=== PATIENT | female | born 1975 | race Two or more races ===

== ENCOUNTER 2022-11-26 23:01 | Emergency (ER) | payer OTHER ==
[~2022-11-26] VITALS: Ht 165.1 cm; Wt 110.7 kg
[2022-11-26 23:07] VITALS: BP 151/83
[2022-11-26 23:53] LABS: CALCIUM, SERUM 8.8 mg/dL (8.5-10.1); POTASSIUM 3.4 mmol/L (3.5-5.1)
== END 2022-11-27 00:30 | disposition home or self-care (01) ==
LOC: ER 23:03
DX: R60.9 Edema, unspecified (principal)
CPT/HCPCS: 36415; 80048-TC